=== PATIENT | female | born 1995 | race African-American/Black ===

== ENCOUNTER 2020-05-24 12:48 | Emergency (ER) | payer BC, MEDICAID ==
[~2020-05-24] VITALS: Ht 167.6 cm; Wt 68.0 kg
[2020-05-24] MEDS ORDERED: FAMOTIDINE 20MG TABLET PO ONE (13:00)
[2020-05-24] MEDS ORDERED: DIPHENHYDRAMINE 25MG CAPSULE PO ONE (13:00)
[2020-05-24] MEDS ORDERED: ACETAMINOPHEN 325MG TABLET PO ONE (13:00)
[2020-05-24] MEDS ORDERED: SODIUM CHLORIDE 0.9% 1,000 ML IV ONE (13:50)
[2020-05-24 14:30] LABS: CLARITY URINE CLEAR (CLEAR); COLOR URINE YELLOW (YELLOW); KETONES URINE NEGATIVE (NEGATIVE); LEUKOCYTE ESTERASE URINE NEGATIVE (NEGATIVE); NITRITE URINE NEGATIVE (NEGATIVE); OCCULT BLOOD URINE NEGATIVE (NEGATIVE); PROTEIN URINE NEGATIVE (NEGATIVE); SPECIFIC GRAVITY URINE 1.028 (1.005-1.030); UROBILINOGEN URINE 0.2 E.U./dL (0.2-1.0)
[2020-05-24 14:31] LABS: BASOPHILS % 0.1 % (0.0-2.0); EOSINOPHILS % 5.3 % (0.0-5.0); HEMATOCRIT. 35.8 % (36.0-48.0); HEMOGLOBIN. 12.8 g/dL (12.0-16.0); LYMPHOCYTES % 10.5 % (20.0-50.0); MEAN CORPUSCULAR HEMOGLOBIN 31.4 pg (28.0-32.0); MEAN CORPUSCULAR VOLUME 87.6 fL (81.0-99.0); MEAN PLATELET VOLUME 8.8 fl (7.4-10.4); MONOCYTES % 5.6 % (2.0-8.0); NEUTROPHILS % 78.5 % (40.0-76.0); PLATELET 128 x1000/uL (130-400); RED BLOOD CELL COUNT 4.09 mill/uL (4.2-5.4); RED CELL DISTRIBUTION WIDTH 13.3 % (11.6-14.6)
[2020-05-24 14:34] LABS: CHLORIDE 105 mEq/L (98-107)
[2020-05-24 17:02] VITALS: BP 97/59
== END 2020-05-24 17:03 | disposition home or self-care (01) ==
LOC: ER 12:48
DX: L29.9 Pruritus, unspecified (principal); R00.0 Tachycardia, unspecified; H57.13 Ocular pain, bilateral
CPT/HCPCS: 36415; 71045; 80053; 81003; 81025; 85025; 96360; 99285; J7030; Q0163

== ENCOUNTER 2022-12-04 18:39 | Emergency (ER) | payer BC, OTHER ==
[~2022-12-04] VITALS: Ht 167.6 cm; Wt 80.0 kg
[2022-12-04 18:42] VITALS: BP 124/90
[2022-12-04] MEDS ORDERED: ONDANSETRON HCL 4MG/2ML INJ IV STA (20:48)
[2022-12-04] MEDS ORDERED: SODIUM CHLORIDE 0.9% 1,000 ML IV ONE (21:00)
[2022-12-04] MEDS ORDERED: ACETAMINOPHEN 325MG TABLET PO ONE (21:00)
[2022-12-04 23:21] LABS: EOSINOPHILS % 0.3 % (0.0-5.0); HEMATOCRIT. 40.6 % (36.0-48.0); HEMOGLOBIN. 13.8 g/dL (12.0-16.0); LYMPHOCYTES % 7.4 % (20.0-50.0); MEAN CORPUSCULAR HEMOGLOBIN 30.2 pg (28.0-32.0); MEAN CORPUSCULAR VOLUME 89.3 fL (81.0-99.0); MEAN PLATELET VOLUME 9.7 fl (7.4-10.4); NEUTROPHILS % 85.3 % (40.0-76.0); PLATELET 209 x1000/uL (130-400); RED BLOOD CELL COUNT 4.55 mill/uL (4.2-5.4); RED CELL DISTRIBUTION WIDTH 13.2 % (11.6-14.6)
[2022-12-04 23:22] LABS: CHLORIDE 106 mEq/L (98-107)
[2022-12-05] MEDS ORDERED: ONDA4TAB50 MT (00:07)
[2022-12-05 00:31] LABS: HCG SCREEN NEGATIVE
== END 2022-12-05 00:18 | disposition home or self-care (01) ==
LOC: ER 18:39
DX: B34.9 Viral infection, unspecified (principal); E86.0 Dehydration; R11.2 Nausea with vomiting, unspecified; R19.7 Diarrhea, unspecified; R00.0 Tachycardia, unspecified
CPT/HCPCS: 36415; 71045; 80053; 83690; 84703; 85025; 96374; 99284; J2405; J7030; Z7610